=== PATIENT | male | born 1965 | race Caucasian/White ===

== ENCOUNTER → 2021-09-09 | Outpatient (CLI) | payer OTHER ==
--- NOTE | 2021-09-10 17:42 | REP ---
INDICATION: ATHEROSCLEROSIS W/ CLAUDICATION COMPARISON: None. TECHNIQUE: Real time betancourt scale and color Doppler evaluation of the bilateral lower extremity arterial vasculature using linear high frequency transducer. FINDINGS: Betancourt scale and color images demonstrate mild to moderate amounts of atheromatous plaquing without occlusion or focal stenosis identified. Doppler interrogation demonstrates normal triphasic arterial wave forms and velocities bilaterally. Peak systolic velocities (cm/sec) Common femoral artery: Right 149; Left 73 Profunda femoris: Right 57; Left 55 SFA (proximal): Right 86; Left 93 SFA (mid): Right 92; Left 94 SFA (distal): Right 76; Left 62 Popliteal artery: Right 53; Left 41 Tibioperoneal trunk: Right 62; Left 75 CATTLE EXAMINER (prox.): Right 49; Left 49 CATTLE EXAMINER (distal): Right 56; Left 62 Peroneal (prox.): Right 29; Left 61 Peroneal (distal): Right not visualized; Left 49 SUMMER (prox.): Right 35; Left 43 SUMMER (distal): Right 42; Left 39 IMPRESSION: Mild atheromatous changes without evidence for stenosis or occlusion. <Electronically signed by Akhil Hardy > 09/10/21 [id number]
== END ==
LOC: M RAD 11:12
PROVIDERS: ATTEND Family Medicine
DX: I70.213 Atherosclerosis of native arteries of extremities with intermittent claudication, bilateral legs (principal)